=== PATIENT | female | born 1970 | race Caucasian/White ===

== ENCOUNTER → 2017-02-09 | Outpatient (CLI) | payer OTHER | LOC: FIMAGING 08:46 | PROVIDERS: ATTEND Nurse Practitioner Adult Health | DX: Z12.31 Encounter for screening mammogram for malignant neoplasm of breast (principal) | CPT/HCPCS: G0202 ==

== ENCOUNTER → 2017-02-17 | Outpatient (CLI) | payer OTHER | LOC: FIMAGING 09:11 | PROVIDERS: ATTEND Internal Medicine | DX: Z12.39 Encounter for other screening for malignant neoplasm of breast (principal); R92.8 Other abnormal and inconclusive findings on diagnostic imaging of breast | CPT/HCPCS: G0206 ==

== ENCOUNTER 2017-07-14 15:58 | Emergency (ER) | payer OTHER ==
[2017-07-14] MEDS ORDERED: SODIUM CL 0.9% IV ONE (15:59)
[2017-07-14] MEDS ORDERED: RANITIDINE 50 MG/2 ML VIAL IV ONE (15:59)
[2017-07-14] MEDS ORDERED: methylPREDNISolone SOD SUCC 125 MG/2 ML VIAL IVP ONE ×2 (15:59→16:07)
--- NOTE | 2017-07-14 16:03 | EDPHY ---
H & P Time Seen by Provider: 07/14/17 16:02 HPI/ROS: HPI: This is a 47-year-old female who presents with Chief Complaint: allergy Location: Face, skin Quality: Allergic reaction Duration: 1 hr prior to arrival Signs and Symptoms: no shortness of breath at rest, no cough, no chest pain, no wheezing, + scratchy throat, no difficulty swallowing, no difficulty talking , no nausea, no vomiting Timing: Rapid onset Severity: [id number] Context: Patient reports that she ate at a restaurant for lunch from 12 o' clock and then went to the gym to work out. She said approximately 1 hr ago she started to feel itchiness on both from palms, the noticed a rash on her chest and scratchy throat. A rapidly progressed to swollen eyelids and swollen lower lip. Patient drove herself to the emergency room. Reports that a similar incident happened a few years ago. She went to [facility] for allergy skin testing of the most common allergens but was all negative. She reports several months later she had adelaida salsa and her eyes and face started to swell up. She took Benadryl with relief and did not seek emergency room treatment. She does not have an EpiPen. Modifying Factors: No Benadryl taken prior to arrival Comment: ROS: see HPI Constitutional: No fever, no chills, no weight loss Eyes: No blurred vision Respiratory: No shortness of breath, no cough Cardiovascular: No chest pain, no palpitations, no lower extremity edema Gastrointestinal: No nausea, no vomiting, no diarrhea Genitourinary: No dysuria Extremities: No myalgias Neurologic: No weakness, no numbness Skin: No rashes Hematologic: No bruising, no bleeding MEDICAL/SURGICAL/SOCIAL HISTORY: Medical history: Sarcoidosis Surgical history: Denies Social history: . Employed. CONSTITUTIONAL: Extremely pleasant and talkative adult white female, awake and alert, no obvious distress HEENT: Atraumatic and normocephalic, PERRL, EOMI. Tympanic membranes clear. Oropharynx clear, no exudate and moist pink mucosa. Airway patent. No lymphadenopathy. No meningismus. Upper eyelid swelling and lower lip swelling noted. No tongue swelling. No post pharyngeal edema. Cardiovascular: Normal S1/S2, regular rate, regular rhythm, without murmur rub or gallop. PULMONARY/CHEST: Symmetrical and nontender. Clear to auscultation bilaterally. Good air movement. No accessory muscle usage. ABDOMEN: Soft, nondistended, nontender, no rebound, no guarding, no peritoneal signs, no masses or organomegaly. No CVAT. EXTREMITIES: 2/2 pulses, strength 5/5, no deformities, no clubbing, no cyanosis or edema. NEUROLOGICAL: no focal neuro deficits. GCS 15. SKIN: Warm and dry, hives noted to torso; no erythema. no rash. Good capillary refill. Source: Patient Exam Limitations: No limitations - Medical/Surgical History Hx Asthma: No Hx Chronic Respiratory Disease: No Hx Diabetes: No Hx Cardiac Disease: No Hx Renal Disease: No Hx Cirrhosis: No Hx Alcoholism: No Hx HIV/AIDS: No Hx Splenectomy or Spleen Trauma: No Other PMH: sarcoidosis - Social History Smoking Status: Never smoked Constitutional: Initial Vital Signs Temperature (C) 36.7 C 07/14/17 16:03 Heart Rate 115 H 07/14/17 16:03 Respiratory Rate 20 07/14/17 16:03 Blood Pressure 132/99 H 07/14/17 16:03 O2 Sat (%) 95 07/14/17 16:03 O2 Delivery Mode Room Air Allergies/Adverse Reactions: adelaida Allergy (Verified 07/14/17 16:02) Home Medications: Medication Instructions Recorded EPINEPHrine [Epipen 0.3 MG] 0.3 mg IM ONCE #2 syr 07/14/17 Famotidine [Pepcid 20 MG (*)] 20 mg PO BID #6 tab 07/14/17 Wellbutrin Sr 07/14/17 predniSONE [predniSONE TAPER] 10 mg PO DAILY 6 Days ea 07/14/17 Medical Decision Making ED Course/Re-evaluation: Allergic reaction is localized. No signs of airway compromise/anaphylaxis/ angioedema/respiratory distress 1605: Given IV Solu-Medrol, IV Zantac, IV Benadryl upon 1620: Reassessed patient. 30% improvement symptoms. another IV Benadryl 50 mg given 1720: Reassessed patient. 75% improvement in symptoms. Patient is requesting to be discharged home. Prescription for EpiPen given as well as for Pepcid and steroid taper. Vital signs improved at discharge. This patient was seen under the supervision of my secondary supervising physician. I evaluated care for this patient independently. Discussed this patient with Dr. Williamson who did not see the patient. Differential Diagnosis: Differential diagnosis includes but is not limited to allergic reaction, mass cell, respiratory distress. - Data Points Medications Given: Discontinued Medications Diphenhydramine HCl (Benadryl Injection) 50 mg IVP EDNOW ONE Stop: 07/14/17 16:08 Last Admin: 07/14/17 16:10 Dose: 50 mg Diphenhydramine HCl (Benadryl Injection) 50 mg IVP EDNOW ONE Stop: 07/14/17 16:55 Last Admin: 07/14/17 16:59 Dose: 50 mg Sodium Chloride (Ns) 1,000 mls @ 0 mls/hr IV ONCE ONE; Wide Open PRN Reason: Protocol Stop: 07/14/17 16:08 Last Admin: 07/14/17 16:10 Dose: 1,000 mls Methylprednisolone Sodium Succinate (Solu-Medrol) 125 mg IVP EDNOW ONE Stop: 07/14/17 16:08 Last Admin: 07/14/17 16:10 Dose: 125 mg Ranitidine HCl (Zantac) 50 mg IVP EDNOW ONE Stop: 07/14/17 16:08 Last Admin: 07/14/17 16:10 Dose: 50 mg Departure - Departure Disposition: Home, Routine, Self-Care 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 It may be beneficial to establish care with an pool table operator in the next 1-2 weeks. Allergic Reaction: Return to the Emergency Department for lip, tongue, throat, or face swelling, or any trouble breathing or swallowing. Referrals: [facility],. [Clinic] - As per Instructions Alton Luke MD [Medical Doctor] - As per Instructions Prescriptions: EPINEPHrine [Epipen 0.3 MG] 0.3 mg IM ONCE #2 syr Famotidine [Pepcid 20 MG (*)] 20 mg PO BID #6 tab predniSONE [predniSONE TAPER] 10 mg PO DAILY 6 Days ea
[2017-07-14] MEDS ORDERED: NS 1,000 ML IV ONE (16:07)
[2017-07-14] MEDS ORDERED: RANITIDINE 50 MG/2 ML VIAL IVP ONE (16:07)
[2017-07-14 16:08] VITALS: TEMP 98.1
[2017-07-14 17:03] VITALS: BP 133/79; PULSE 70; RESP 16; O2SAT 94
== END 2017-07-14 17:30 | disposition home or self-care (01) ==
DX: T78.1XXA Other adverse food reactions, not elsewhere classified, initial encounter (principal); E86.9 Volume depletion, unspecified
CPT/HCPCS: 96374; J1200; J2780; J2930

== ENCOUNTER → 2018-06-30 | Outpatient (CLI) | payer OTHER | LOC: FIMAGING 15:32 | PROVIDERS: ATTEND Nurse Practitioner Adult Health | DX: Z12.31 Encounter for screening mammogram for malignant neoplasm of breast (principal) ==